=== PATIENT | female | born 1940 | race Caucasian/White ===

== ENCOUNTER 2016-05-11 09:58 | Outpatient (CLI) | payer MEDICARE, BC ==
[2016-05-11 11:07] LABS: Hemoglobin 12.6 g/dL (12.0-16.0); Mean Corpuscular HGB CONC 29.8 g/dL (32.0-36.0); Mean Corpuscular Hemoglobin 29.5 pg (27.0-31.0); Mean Platelet Volume 12.7 fL (7.4-10.4); Platelet Count 213 thou/uL (130-400); RBC Distribution Width 14.6 % (11.5-14.5); Red Blood Cell (RBC) Count 4.27 mill/uL (4.20-5.40)
[2016-05-11 11:08] LABS: Band 1 % (5-11); Eosinophils 2 % (0-10); Lymphocytes 19 % (21-51); MDiff Complete? YES; Manual Diff?? YES; Monocytes 8 % (0-10); Neutrophil 70 % (42-75)
[2016-05-11 11:09] LABS: PLT Morphology Comment Appears Adequate; RBC Morphology N
[2016-05-11 11:26] LABS: ALT (SGPT) 13 U/L (0-55); AST (SGOT) 18 U/L (5-34); Albumin 3.6 g/dL (3.4-4.8); Alkaline Phosphatase 80 U/L (40-150); Anion Gap 16 mmol/L (10-20); BUN (Urea Nitrogen) 12 mg/dL (9.8-20.1); Bilirubin, Direct 0.2 mg/dL (0.1-0.3); Bilirubin, Total 0.5 mg/dL (0.2-1.2); Calc. Creatinine Clearance 0 mL/min (70-130); Calcium 9.6 mg/dL (7.8-10.44); Carbon Dioxide 37 mmol/L (23-31); Cardiac Risk 2.4 (Less than 4.5); Cholesterol 169 mg/dL (< 200 Desired); Estimated GFR-MDRD 75; Glucose 99 mg/dL (83-110); HDL Cholesterol 70 mg/dL (>60 Neg Risk); LDL Cholesterol, Calculated 81 mg/dL; Protein, Total 6.8 g/dL (5.8-8.1); Triglycerides 88 mg/dL (Less than 150)
[2016-05-11 11:34] LABS: Chloride 93 mmol/L (98-107); Potassium 3.9 mmol/L (3.5-5.1); Sodium 142 mmol/L (136-145)
== END 2016-05-11 09:59 | disposition home or self-care (01) ==
LOC: MADLABBHPM 09:58
PROVIDERS: ATTEND Family Medicine
DX: N18.3 Chronic kidney disease, stage 3 (moderate) (principal); I50.32 Chronic diastolic (congestive) heart failure
CPT/HCPCS: 36415; 80048; 80061; 80076; 85025

== ENCOUNTER 2016-07-12 14:32 | Outpatient (CLI) | payer MEDICARE, BC ==
[2016-07-12 18:24] LABS: Calc. Creatinine Clearance 0 mL/min (70-130); Calcium 8.9 mg/dL (7.8-10.44); Estimated GFR-MDRD 53; Glucose 149 mg/dL (83-110)
[2016-07-12 18:47] LABS: BUN (Urea Nitrogen) 22 mg/dL (9.8-20.1); Carbon Dioxide 35 mmol/L (23-31)
[2016-07-12 19:22] LABS: Anion Gap 17 mmol/L (10-20); Chloride 95 mmol/L (98-107); Potassium 4.3 mmol/L (3.5-5.1); Sodium 143 mmol/L (136-145)
== END 2016-07-12 14:33 | disposition home or self-care (01) ==
LOC: MADLAB 14:32
PROVIDERS: ATTEND Internal Medicine Cardiovascular Disease
DX: I10 Essential (primary) hypertension (principal)
CPT/HCPCS: 36415; 80048

== ENCOUNTER 2016-09-19 09:38 | Outpatient (CLI) | payer MEDICARE, BC ==
[2016-09-19 10:08] LABS: Hemoglobin A1c 4.8 % (4.0-6.0)
[2016-09-19 10:12] LABS: Anion Gap 16 mmol/L (10-20); BUN (Urea Nitrogen) 15 mg/dL (9.8-20.1); Calc. Creatinine Clearance 0 mL/min (70-130); Calcium 9.3 mg/dL (7.8-10.44); Carbon Dioxide 38 mmol/L (23-31); Estimated GFR-MDRD 66; Glucose 90 mg/dL (83-110)
[2016-09-19 10:19] LABS: Chloride 93 mmol/L (98-107); Potassium 4.2 mmol/L (3.5-5.1); Sodium 143 mmol/L (136-145)
== END 2016-09-19 09:39 | disposition home or self-care (01) ==
LOC: MADLABBHPM 09:38
PROVIDERS: ATTEND Family Medicine
DX: R73.01 Impaired fasting glucose (principal); N18.3 Chronic kidney disease, stage 3 (moderate)
CPT/HCPCS: 36415; 80048; 83036

== ENCOUNTER 2017-12-02 13:35 | Emergency (ER) | payer MEDICARE, BC ==
[2017-12-02] MEDS ORDERED: Acetaminophen 500 MG TAB ONE (14:19)
[2017-12-02] MEDS ORDERED: Sulfameth/Trimethoprim DS 800-160mg TAB ONE (14:19)
== END 2017-12-02 14:29 | disposition home or self-care (01) ==
LOC: MADERS 13:35
DX: L03.115 Cellulitis of right lower limb (principal); S90.414A Abrasion, right lesser toe(s), initial encounter; K21.9 Gastro-esophageal reflux disease without esophagitis; J44.9 Chronic obstructive pulmonary disease, unspecified; I10 Essential (primary) hypertension; F17.210 Nicotine dependence, cigarettes, uncomplicated; Z79.899 Other long term (current) drug therapy
CPT/HCPCS: 99283

== ENCOUNTER 2017-12-09 13:58 | Emergency (ER) | payer MEDICARE, BC ==
[2017-12-09 14:45] LABS: CKMB 2.1 ng/mL (0-6.6); Troponin I Less than 0.010 ng/mL (< 0.028)
[2017-12-09 14:46] LABS: Band 8 % (5-11); Eosinophils 1 % (0-10); Hemoglobin 13.1 g/dL (12.0-16.0); Lymphocytes 1 % (21-51); MDiff Complete? YES; Mean Corpuscular HGB CONC 30.3 g/dL (32.0-36.0); Mean Corpuscular Hemoglobin 30.2 pg (27.0-31.0); Mean Corpuscular Volume 99.7 fL (78.0-98.0); Mean Platelet Volume 12.6 fL (7.4-10.4); Monocytes 2 % (0-10); Neutrophil 88 % (42-75); Platelet Count 250 thou/uL (130-400); Red Blood Cell (RBC) Count 4.33 mill/uL (4.20-5.40); White Blood Cell (WBC) Count 27.1 thou/uL (4.8-10.8)
[2017-12-09 14:47] LABS: ALT (SGPT) 21 U/L (8-55); AST (SGOT) 21 U/L (5-34); Albumin 3.9 g/dL (3.4-4.8); Alkaline Phosphatase 113 U/L (40-150); Anion Gap 18 mmol/L (10-20); BUN (Urea Nitrogen) 32 mg/dL (9.8-20.1); Bilirubin, Total 0.4 mg/dL (0.2-1.2); Calc. Creatinine Clearance 0 mL/min (70-130); Calcium 9.1 mg/dL (7.8-10.44); Carbon Dioxide 33 mmol/L (23-31); Chloride 93 mmol/L (98-107); Estimated GFR-MDRD 47; Globulin 3.3 g/dL (2.4-3.5); Glucose 116 mg/dL (83-110); Protein, Total 7.2 g/dL (6.0-8.3); Sodium 139 mmol/L (136-145)
--- NOTE | 2017-12-09 14:50 | RAD ---
UPRIGHT PORTABLE CHEST ONE VIEW: History: 67-year-old female with history of dyspnea. Comparison: 06-27-17 FINDINGS: Increased interstitial and reticular nodular parenchymal changes are noted bilaterally including the perihilar regions and lower lung zones with slight blunting of both costophrenic angles. This interst itial and reticular nodular pattern has progressed in appearance when compared to the prior 06-27-17 s tudy, evidence for some bilateral interstitial edema. Atherosclerosis of the aorta with ectasia. No s ignificant confluent component. IMPRESSION: Worsening interstitial and reticular nodular parenchymal changes bilaterally, evidence for developing edema. No significant acute confluent pneumonia. POS: OFF
[2017-12-09] MEDS ORDERED: methylPREDNISolone Sod Succ/PF 125 MG/2 ML VIAL ONE (14:59)
[2017-12-09] MEDS ORDERED: Furosemide 40 MG/4 ML VIAL ONE (15:34)
== END 2017-12-09 18:00 | disposition short-term general hospital (02) ==
LOC: MADERS 13:58
DX: J44.1 Chronic obstructive pulmonary disease with (acute) exacerbation (principal); I11.0 Hypertensive heart disease with heart failure; I50.9 Heart failure, unspecified; K21.9 Gastro-esophageal reflux disease without esophagitis; J44.9 Chronic obstructive pulmonary disease, unspecified; F17.210 Nicotine dependence, cigarettes, uncomplicated; Z79.899 Other long term (current) drug therapy
CPT/HCPCS: 36415; 71045; 80053; 82553; 83605; 83880; 84484; 85025; 87040; 93005; 94760; 96374; 96375; J1940; J2930; J7620

== ENCOUNTER 2018-02-13 01:10 | Emergency (ER) | payer MEDICARE, BC ==
[2018-02-13] MEDS ORDERED: Sodium Chloride 0.9% 500 ML ONE (01:42)
[2018-02-13 02:08] LABS: #Basophils 0.1 thou/uL (0.0-0.2); #Lymphocytes 0.7 thou/uL (1.20-3.40); #Monocytes 0.8 thou/uL (0.11-0.59); #Neutrophils 9.3 thou/uL (1.40-6.50); %Basophils 0.8 % (0.0-1.0); %Eosinophils 0.2 % (0.0-10.0); %Lymphocytes 6.7 % (21.0-51.0); %Monocytes 7.2 % (0.0-10.0); %Neutrophils 85.1 % (42.0-75.0); Hemoglobin 11.2 g/dL (12.0-16.0); Mean Corpuscular HGB CONC 30.5 g/dL (32.0-36.0); Mean Corpuscular Hemoglobin 30.7 pg (27.0-31.0); Mean Corpuscular Volume 100.8 fL (78.0-98.0); Mean Platelet Volume 11.4 fL (7.4-10.4); Platelet Count 222 thou/uL (130-400); RBC Distribution Width 14.2 % (11.5-14.5); Red Blood Cell (RBC) Count 3.65 mill/uL (4.20-5.40); White Blood Cell (WBC) Count 10.9 thou/uL (4.8-10.8)
[2018-02-13 02:14] LABS: ALT (SGPT) 23 U/L (8-55); AST (SGOT) 20 U/L (5-34); Albumin 3.9 g/dL (3.4-4.8); Alkaline Phosphatase 74 U/L (40-150); Anion Gap 18 mmol/L (10-20); BUN (Urea Nitrogen) 26 mg/dL (9.8-20.1); Bilirubin, Total 0.6 mg/dL (0.2-1.2); CK (CPK) 20 U/L (29-168); Calc. Creatinine Clearance 0 mL/min (70-130); Calcium 9.4 mg/dL (7.8-10.44); Estimated GFR-MDRD 44; Globulin 2.6 g/dL (2.4-3.5); Glucose 121 mg/dL (83-110); Protein, Total 6.5 g/dL (6.0-8.3)
[2018-02-13 02:22] LABS: Chloride 89 mmol/L (98-107); Potassium 4.1 mmol/L (3.5-5.1); Sodium 144 mmol/L (136-145)
[2018-02-13 02:41] LABS: Carbon Dioxide 41 mmol/L (23-31)
--- NOTE | 2018-02-13 08:11 | RAD ---
PORTABLE UPRIGHT FRONTAL CHEST RADIOGRAPH: DATE: 02/13/2018. COMPARISON: 01/13/2018. HISTORY: Dyspnea. FINDINGS: Stable prominence of the cardiac silhouette. Stable blunting of the left costophrenic angles suggest s pleural thickening and/or pleural fluid. There is stable increased interstitial density throughout both lungs when compared to the 02/13/2018 examination. There is no lobar consolidation or alveolar edema. Of note, the degree of interstitial prominence is more significant than when compared to a examination and 06/27/2017 examination. A degree of this may be technical in nature but sup erimposed interstitial pulmonary edema on chronic lung disease is a possibility. IMPRESSION: Interstitial prominence noted throughout both lungs with blunting of the left costophrenic angle. Fi ndings have progressed since 06/27/2017 and thus, findings may signify interstitial edema superimposed on chronic lung disease with possible left basilar infectious pneumonia or pleural effusion. Recomm end followup imaging following treatment to document resolution. POS: ANNITA
--- NOTE | 2018-02-13 09:38 | CT ---
PRELIMINARY REPORT/[facility]/EMERGENTY AFTER-HOURS PROCEDURE CT Head Without Contrast EXAM DATE/TIME: 02/13/2018 1:49 AM CLINICAL HISTORY: 77 years old, female; Injury or trauma; Fall; Initial encounter; Concussion / head injury; Consciousn ess not specified; Injury date: 02-13-18; Injury details: Syncope PT fell TECHNIQUE: Axial computed tomography images of the head/brain without contrast. All CT scans at this facility use at least one of these dose optimization techniques: automated expos ure control; mA and/or kV adjustment per patient size (includes targeted exams where dose is matched to clinical indication); or iterative reconstruction. COMPARISON: No relevant prior studies available. FINDINGS: Brain: No acute intracranial hemorrhage or mass effect. There is decreased attenuation in the periventricular white matter, likely from microvascular disease . Suspect an old lacunar infarct in the right basal ganglia/internal capsule region. No definite acut e infarct by CT. MRI could be more sensitive/specific for detection, as clinically directed. Ventricles: Ventricle size is normal for age. Bones/joints: No definite acute skull fracture. Sinuses: Included paranasal sinuses are essentially clear. Mastoid air cells: No significant acute finding. Vasculature: Vascular calcifications are noted in the internal carotid arteries. IMPRESSION: 1. No acute intracranial bleed or mass effect. 2. Other findings discussed above. Thank you for allowing us to participate in the care of your patient. Dictated and Authenticated by: Asael Richardson MD 02/13/2018 2:48 AM Central Time ([place] & [place]) FINAL REPORT CT HEAD NONCONTRAST: DATE: 02/13/2018. TIME: Performed on an emergency basis at 0150 hours. HISTORY: Fall. Head injury. FINDINGS: No comparison. Agree with the preliminary report by Dr. Richardson from [facility]. No acute intr acranial abnormalities are demonstrated. POS: [facility]
== END 2018-02-13 03:31 | disposition short-term general hospital (02) ==
LOC: MADERS 01:10
DX: J44.9 Chronic obstructive pulmonary disease, unspecified (principal); R55 Syncope and collapse; K21.9 Gastro-esophageal reflux disease without esophagitis; I10 Essential (primary) hypertension; I11.0 Hypertensive heart disease with heart failure; I48.91 Unspecified atrial fibrillation; F17.210 Nicotine dependence, cigarettes, uncomplicated
CPT/HCPCS: 36415; 70450; 71045; 80053; 82550; 83880; 84484; 85025; 93005; 94640; 94760; J7050; J7620

== ENCOUNTER 2018-02-24 15:51 | Inpatient (IN) | payer MEDICARE, BC ==
[2018-02-24] MEDS: Furosemide 40 MG TAB PO SCH (21:02)
[2018-02-24] MEDS: Gabapentin 100 MG CAP PO SCH (21:02)
[2018-02-24] MEDS: Apixaban 5 MG TAB PO SCH (21:03)
[2018-02-25] MEDS: Gabapentin 100 MG CAP PO SCH ×2 (08:11→20:58)
[2018-02-25] MEDS: Polyethylene Glycol 3350 17 GM Packet PO SCH (08:11)
[2018-02-25] MEDS: Acetaminophen 325 MG TAB PO PRN ×2 (08:11→19:49)
[2018-02-25] MEDS: predniSONE 20 MG TAB PO SCH (08:11)
[2018-02-25] MEDS: FLUTICASONE IH SCH (08:12)
[2018-02-25] MEDS: Apixaban 5 MG TAB PO SCH ×2 (08:12→20:57)
[2018-02-25] MEDS: UMECLIDIN IH SCH (08:12)
[2018-02-25] MEDS: Furosemide 40 MG TAB PO SCH ×2 (08:12→20:58)
[2018-02-25] MEDS: VILANTER IH SCH (08:12)
--- NOTE | 2018-02-25 14:55 | HP ---
CHIEF COMPLAINT: Weakness. HISTORY OF PRESENT ILLNESS: The patient is a 77-year-old white female, who has end-stage COPD, complicated by chronic hypercapnic hypoxemia, requiring supplemental O2 and sleeps with a BiPAP. The patient also has chronic diastolic heart failure, paroxysmal atrial fibrillation, continued cigarette utilization, hypertension, venous insufficiency of the lower extremity, and chronic kidney disease. She resides at home with her and has very limited activities, usually can take a few steps, but mainly gets around in a wheelchair. Her assists her with all her ADLs and instrumental ADLs. [facility] svhbd-cn-[id number] respiratory failure from 02/13/2018 until 2017 and bqxxe-bo-ycraeth congestive heart failure. While hospitalized, she had difficulties with hyperkalemia that has improved. She was left extremely weak and essentially has been bed-confined. Her condition was one of gradual improvement after the IV antibiotics, IV steroids, neb treatments, and BiPAP. Her condition improved such that it was felt that she could be transferred to [facility] to extended care for a trial of PT and OT. Her Pulmonary doctors felt like that she has very advanced COPD that is end-stage and that consideration should be given to hospice care. The patient is still wanting to try her best to see if she can just improve and get back into her home. The patient was seen soon after her admission and I was able to review her history of the recent hospitalization. PAST MEDICAL HISTORY: Hospitalized at [facility] from 04/16 until 02/24/2018 for uixlj-gw-ttsmadi respiratory failure with end-stage COPD and congestive heart failure. The patient has chronic diastolic heart failure; chronic hypercapnic-hypoxic respiratory failure, for which she uses a BiPAP at home; paroxysmal atrial fibrillation; hypertension; venous insufficiency of the lower extremities; chronic kidney disease; chronic low back pain; GERD; continued tobacco utilization; hyperthyroidism, treated with Tapazole in 04/07. The patient had an appendectomy, colonoscopy last in 2012, had polyp removed and it showed evidence of diverticular disease of the colon. She has had x-rays of her thoracic and lumbar spine previously that shows spondylosis of the spine. MEDICATIONS: Present medicines; 1. Albuterol inhaler 2 puffs every 6 hours as needed. 2. Ipratropium/albuterol 0.5/2.5 mg/3 mL, 3 mL by nebulizer q.i.d. and every 4 hours as needed. 3. Gabapentin 100 mg in the morning, 200 mg at bedtime. 4. Furosemide 40 mg b.i.d. 5. Trelegy Ellipta one inhalation daily. 6. Eliquis 2.5 mg b.i.d. 7. Prednisone 20 mg daily. 8. Metoprolol succinate 25 mg daily. 9. O2 at 2 to 3 L/min. ALLERGIES: HIGH-DOSE GABAPENTIN, CAUSES TREMORS. REVIEW OF SYSTEMS: GENERAL: The patient does not think she has had any fever. She does not think her weight has changed. HEAD AND NECK: No complaints. PULMONARY: The patient gets very short of breath with any exertion. If she lays flat, sometimes she gets short of breath. The patient states that she has a little phlegm that she coughs up that is clear. CARDIOVASCULAR: No chest pain. GI: No nausea or vomiting. Appetite is not good. Lately, she has been a little constipated. : The patient has been incontinent of urine. NEUROPSYCHIATRIC: The patient said she has generalized weakness, nonfocal. SKIN: The patient has a little abrasion on her left ankle area from a fall she had prior to her admission on 02/13. HABITS: The patient smoked most of her life. Continues to smoke a few cigarettes every day. Alcohol, none. SOCIAL HISTORY: The patient lives at home with her . CODE STATUS: DNR. PHYSICAL EXAMINATION: GENERAL: Shows a sthenic-built 77-year-old white female, who is sitting up in bed. She is mildly tachypneic. She is wearing O2. HEENT: Her ears, TMs are clear. Eyes, pupils are equal, round, and reactive. Sclerae nonicteric. Nose normal. Mouth and throat normal. NECK: Carotids are equal and strong. No bruits. Thyroid not enlarged. LUNGS: The patient has poor breath sounds. On forced expiration, there are fine wheezes throughout the chest, which are chronic for her. Coarse rales at the right posterior base. HEART: Irregular rate. ABDOMEN: Soft. No organomegaly nor areas of tenderness. The patient has some little red areas and abrasion in the left inguinal area that is healing. EXTREMITIES: Lower extremities; trace edema. NEUROLOGIC: The patient is alert and oriented x3. She has severe generalized weakness that is nonfocal. IMPRESSION: 1. Severe weakness. a. Chronic with acute exacerbation from her recent hospitalization. 2. Hospitalized at [facility] from 02/13/2018 until 02/24/2018 for lrfyt-fu-bmdaahh respiratory failure with congestive heart failure and hyperkalemia. 3. Chronic obstructive pulmonary disease, severe, end-stage. a. Complicated by chronic hypercapnic-hypoxic respiratory failure. b. Require supplemental O2, continuous. c. Utilizes a BiPAP at nighttime. 4. Chronic diastolic heart failure. a. No evidence of acute congestive heart failure on admission. 5. Paroxysmal atrial fibrillation. a. Rate controlled. b. On chronic anticoagulation with Eliquis. 6. Cigarette abuse, persist. 7. Hypertension. 8. Venous insufficiency of the lower extremities. 9. Chronic kidney disease, stage 3. 10. Chronic back pain secondary to spondylosis. 11. Code status. DNR. PLAN: The patient has been admitted to [facility] to extended care. We will continue her routine medications. PT and OT will work with her and give her an opportunity to see if her functional capabilities can be improved. The patient did reaffirm that she has a DNR status if nothing more can be done. The patient has end-stage COPD and there would not be much that could be offered to this lady. She is wanting to try physical therapy and OT to see if she can improve. We talked more with her and her about consideration of palliative hospice care. Job ID: [id number] MTDShanthi
--- NOTE | 2018-02-25 16:17 | PRG ---
DATE OF SERVICE: 02/25/2018 SUBJECTIVE: The patient said she is feeling a little better today. Yesterday, we had her out with the transfer from [facility] in [place] to [facility] here in [place]. She says her breathing is about the same. She does feel sort of hot this morning. She is not running any fever. OBJECTIVE: GENERAL: The patient is sitting up in bed. Awake, alert, talkative visiting her family. She has O2 on and appears comfortable. VITAL SIGNS: Her weight was 140. Temperature 97.9, pulse 102, respiration 16, O2 saturation 96% on 3 L, and blood pressure 124/83. LUNGS: Breath sounds are better than what they were on exam last evening. She does have some chronic expiratory wheeze on forced expiration. HEART: Regular rate. ASSESSMENT: 1. Severe generalized weakness and deconditioning. a. Secondary to the advanced chronic obstructive pulmonary disease and hypoxemia, and recent hospitalization for the acute exacerbation. b. Stable as of 02/25. 2. Chronic obstructive pulmonary disease, severe, end-stage. a. Complicated by chronic hypercapnic hypoxemic respiratory failure. b. Recent acute exacerbation with acute respiratory failure on chronic, requiring hospitalization at [facility] from 02/13/2018 to 02/24/2018. 3. Diastolic congestive heart failure, chronic. a. No evidence of acute congestive heart failure. 4. Paroxysmal atrial fibrillation. a. Rate control. b. On chronic anticoagulation with Eliquis. 5. Peripheral neuropathy. PLAN: Continue present care. Continue PT and OT. Job ID: [id number] MTDD
[2018-02-25 16:32] VITALS: BMI 23.3
[2018-02-26 05:35] LABS: Anisocytosis SLIGHT = 6-15 cells (100X) (0-5/hpf); Eosinophils 1 % (0-10); Hemoglobin 10.3 g/dL (12.0-16.0); Hypochromia MODERATE=16-30 cells (100X) (0-5/hpf); Lymphocytes 3 % (21-51); MDiff Complete? YES; Mean Corpuscular HGB CONC 29.9 g/dL (32.0-36.0); Mean Corpuscular Hemoglobin 30.4 pg (27.0-31.0); Mean Corpuscular Volume 101.6 fL (78.0-98.0); Mean Platelet Volume 11.7 fL (7.4-10.4); Monocytes 7 % (0-10); Neutrophil 85 % (42-75); Platelet Count 193 thou/uL (130-400); Poikilocytosis SLIGHT = 6-15 cells (100X) (0-5/hpf); RBC Distribution Width 14.3 % (11.5-14.5); RBC Morphology Abnormal; Reactive Lymphocytes 4 % (0-10); Red Blood Cell (RBC) Count 3.38 mill/uL (4.20-5.40); Stomatocytes MODERATE= 6-15 cells (100X) (0-1/hpf); White Blood Cell (WBC) Count 21.8 thou/uL (4.8-10.8)
[2018-02-26 05:37] LABS: Manual Diff?? YES
[2018-02-26 05:38] LABS: #Basophils 0.1 thou/uL (0.0-0.2); #Eosinphils 0.2 thou/uL (0.0-0.7); #Lymphocytes 1.7 thou/uL (1.20-3.40); #Monocytes 2.1 thou/uL (0.11-0.59); #Neutrophils 17.7 thou/uL (1.40-6.50); %Basophils 0.7 % (0.0-1.0); %Eosinophils 1.1 % (0.0-10.0); %Lymphocytes 7.8 % (21.0-51.0); %Monocytes 9.6 % (0.0-10.0); %Neutrophils 80.8 % (42.0-75.0)
[2018-02-26 05:39] LABS: PLT Morphology Comment Appears Adequate
[2018-02-26 05:41] LABS: ALT (SGPT) 22 U/L (8-55); AST (SGOT) 22 U/L (5-34); Alkaline Phosphatase 65 U/L (40-150); Anion Gap 12 mmol/L (10-20); BUN (Urea Nitrogen) 31 mg/dL (9.8-20.1); Bilirubin, Total 0.5 mg/dL (0.2-1.2); Calc. Creatinine Clearance 54 mL/min (70-130); Calcium 9.1 mg/dL (7.8-10.44); Estimated GFR-MDRD 63; Globulin 2.2 g/dL (2.4-3.5); Glucose 86 mg/dL (83-110); Protein, Total 5.2 g/dL (6.0-8.3)
[2018-02-26 05:51] LABS: Carbon Dioxide 37 mmol/L (23-31); Chloride 97 mmol/L (98-107); Potassium 4.2 mmol/L (3.5-5.1); Sodium 148 mmol/L (136-145)
[2018-02-26] MEDS: Furosemide 40 MG TAB PO SCH ×2 (08:34→20:29)
[2018-02-26] MEDS: Apixaban 5 MG TAB PO SCH ×2 (08:34→20:28)
[2018-02-26] MEDS: FLUTICASONE IH SCH (08:34)
[2018-02-26] MEDS: Gabapentin 100 MG CAP PO SCH ×2 (08:34→20:29)
[2018-02-26] MEDS: UMECLIDIN IH SCH (08:34)
[2018-02-26] MEDS: predniSONE 20 MG TAB PO SCH (08:34)
[2018-02-26] MEDS: VILANTER IH SCH (08:34)
[2018-02-26] MEDS: Polyethylene Glycol 3350 17 GM Packet PO SCH (08:35)
[2018-02-26] MEDS ORDERED: Bisacodyl 10 MG SUPP PR PRN (13:50)
--- NOTE | 2018-02-26 14:56 | PRG ---
DATE OF SERVICE: 02/26/2018 SUBJECTIVE: The patient says she is doing okay. She rested well last night, used her BiPAP. This morning, she is in the Physical Therapy Department in a Viviane chair. She is not really able to walk and requires kpuwpcjj-gk-ezzqulb assist with transfer. She said she gets short of breath with hardly any exertion. OBJECTIVE: GENERAL: The patient is sitting up in a geriatric chair. She is very mildly tachypneic, which is her usual status, is able to talk. VITAL SIGNS: Temperature 97.7, pulse 62, respirations 22, O2 saturation 92% on 3 L, and blood pressure 127/65. Weight is stable at 145. The patient's output over the last 24 hours was 2000 mL. LUNGS: Have poor breath sounds this morning, which is usual. Yesterday, was a very unusual day and that she had such improvement in her breath sounds. Today's breath sounds have some mild wheeze on expiration, which are chronic. HEART: Regular rate. EXTREMITIES: Trace edema in the lower extremities. LABORATORY DATA: Her lab shows an H and H of 10.3 and 34.4, white blood cell count 21,800 with 85% segs, 3% lymphocytes, and platelet count of 193,000. Sodium 148 , potassium 4.2, chloride 97, CO2 of 37, BUN 31, creatinine 0.87, and albumin 3.0. ASSESSMENT: 1. Severe generalized weakness and deconditioning. a. Secondary to the advanced chronic obstructive pulmonary disease and hypoxemia, and recent hospitalization for the acute exacerbation. b. Stable as of 02/26/2018, limited capability due to her severe chronic obstructive pulmonary disease and shortness of breath with much exertion. 2. Chronic obstructive pulmonary disease, severe, end-stage. a. Complicated by chronic hypercapnic hypoxemic respiratory failure. b. Recent acute exacerbation with acute respiratory failure on chronic, requiring hospitalization at [facility] from 02/13/2018 to 02/24/2018. 3. Diastolic congestive heart failure, chronic. a. No evidence of acute congestive heart failure as od 02/26/2018. 4. Paroxysmal atrial fibrillation. a. Rate control. b. On chronic anticoagulation with Eliquis. 5. Peripheral neuropathy. 6. Cigarette abuse persist. 7. Hypertension. 8. Venous insufficiency of the lower extremities. 9. Chronic kidney disease, stage 3. 10. Chronic back pain secondary to spondylosis. 11. Code status, DNR. PLAN: Continue present care. The patient's CBC shows leukocytosis, probably from the steroids causing demargination of the WBCs. We will continue to try to work with her to see if she can tolerate any therapy which might help with her general functional capability. Job ID: [id number] MTDD
[2018-02-27] MEDS: Apixaban 5 MG TAB PO SCH ×2 (08:15→20:57)
[2018-02-27] MEDS: Furosemide 40 MG TAB PO SCH ×2 (08:15→15:01)
[2018-02-27] MEDS: predniSONE 20 MG TAB PO SCH (08:15)
[2018-02-27] MEDS: UMECLIDIN IH SCH (08:16)
[2018-02-27] MEDS: VILANTER IH SCH (08:16)
[2018-02-27] MEDS: FLUTICASONE IH SCH (08:16)
[2018-02-27] MEDS: Polyethylene Glycol 3350 17 GM Packet PO SCH (08:17)
[2018-02-27] MEDS: Gabapentin 100 MG CAP PO SCH ×2 (08:17→20:58)
--- NOTE | 2018-02-27 13:40 | PRG ---
DATE OF SERVICE: 02/27/2018 SUBJECTIVE: The patient said she is doing okay this morning. She is a little tired. She just did not rest well last night. Storm kept her awake. She is ready to again try her physical therapy this morning. Therapy is here to take her to the PT department. OBJECTIVE: GENERAL: The patient is alert, appears comfortable, in no distress. VITAL SIGNS: Her temp is 97.5, pulse 83, respirations 20, O2 saturation 94%, and blood pressure 129/81. LUNGS: Fair breath sounds with some wheeze on forced expiration. HEART: _episodes of irregular rhythm but rate well controlled and in the 80s. EXTREMITIES: Trace edema, bilateral. ASSESSMENT: 1. Severe generalized weakness and deconditioning. a. Secondary to the advanced chronic obstructive pulmonary disease and hypoxemia, and recent hospitalization for the acute exacerbation. b. Stable as of 02/26/2018, limited capability due to her severe chronic obstructive pulmonary disease and shortness of breath with much exertion. 2. Chronic obstructive pulmonary disease, severe, end-stage. a. Complicated by chronic hypercapnic hypoxemic respiratory failure. b. Recent acute exacerbation with acute respiratory failure on chronic, requiring hospitalization at [facility] from 02/13/2018 to 02/24/2018. c. Mild improvement as of 02/27/2018. 3. Diastolic congestive heart failure, chronic. a. No evidence of acute congestive heart failure as of 02/27/2018. 4. Paroxysmal atrial fibrillation. a. Irregular rhythm, but rate controlled as of 02/27/2018. b. On chronic anticoagulation with Eliquis. 5. Peripheral neuropathy. 6. Cigarette abuse persist. 7. Hypertension. 8. Venous insufficiency of the lower extremities. 9. Chronic kidney disease, stage 3. 10. Chronic back pain secondary to spondylosis. 11. Code status, DNR. PLAN: Continue present care. Continue PT. Job ID: [id number] [facility]
[2018-02-27] MEDS: Acetaminophen 325 MG TAB PO PRN (15:26)
[2018-02-28] MEDS: FLUTICASONE IH SCH (09:32)
[2018-02-28] MEDS: UMECLIDIN IH SCH (09:32)
[2018-02-28] MEDS: VILANTER IH SCH (09:32)
[2018-02-28] MEDS: Furosemide 40 MG TAB PO SCH ×3 (09:33→15:48)
[2018-02-28] MEDS: Apixaban 5 MG TAB PO SCH ×2 (09:33→20:13)
[2018-02-28] MEDS: predniSONE 20 MG TAB PO SCH (09:33)
[2018-02-28] MEDS: Polyethylene Glycol 3350 17 GM Packet PO SCH (09:33)
[2018-02-28] MEDS: Gabapentin 100 MG CAP PO SCH ×2 (09:33→20:13)
[2018-03-01] MEDS: Polyethylene Glycol 3350 17 GM Packet PO SCH (08:20)
[2018-03-01] MEDS: predniSONE 20 MG TAB PO SCH (08:21)
[2018-03-01] MEDS: Apixaban 5 MG TAB PO SCH ×2 (08:21→20:53)
[2018-03-01] MEDS: Gabapentin 100 MG CAP PO SCH ×2 (08:22→20:54)
[2018-03-01] MEDS: Furosemide 40 MG TAB PO SCH (08:22)
[2018-03-01] MEDS: Fluticasone/Umeclidin/Vilanter [Trelegy Ellipta 100-62.5-25] INH SCH (08:22)
[2018-03-01 11:17] LABS: Anion Gap 16 mmol/L (10-20); BUN (Urea Nitrogen) 28 mg/dL (9.8-20.1); Calc. Creatinine Clearance 58 mL/min (70-130); Calcium 9.7 mg/dL (7.8-10.44); Estimated GFR-MDRD 69; Glucose 111 mg/dL (83-110)
[2018-03-01 11:25] LABS: Chloride 94 mmol/L (98-107); Potassium 5.1 mmol/L (3.5-5.1); Sodium 150 mmol/L (136-145)
[2018-03-01 11:31] LABS: #Basophils 0.1 thou/uL (0.0-0.2); #Eosinphils 0.1 thou/uL (0.0-0.7); #Lymphocytes 0.7 thou/uL (1.20-3.40); #Monocytes 1.1 thou/uL (0.11-0.59); #Neutrophils 16.8 thou/uL (1.40-6.50); %Basophils 0.6 % (0.0-1.0); %Eosinophils 0.5 % (0.0-10.0); %Lymphocytes 3.5 % (21.0-51.0); %Monocytes 5.7 % (0.0-10.0); %Neutrophils 89.8 % (42.0-75.0); Anisocytosis SLIGHT = 6-15 cells (100X) (0-5/hpf); Band 5 % (5-11); Eosinophils 1 % (0-10); Hemoglobin 10.7 g/dL (12.0-16.0); Hypochromia SLIGHT = 6-15 cells (100X) (0-5/hpf); Lymphocytes 8 % (21-51); MDiff Complete? YES; Mean Corpuscular HGB CONC 28.7 g/dL (32.0-36.0); Mean Corpuscular Volume 104.6 fL (78.0-98.0); Mean Platelet Volume 10.6 fL (7.4-10.4); Monocytes 6 % (0-10); Neutrophil 80 % (42-75); PLT Morphology Comment Appears Adequate; Platelet Count 190 thou/uL (130-400); RBC Distribution Width 14.7 % (11.5-14.5); Red Blood Cell (RBC) Count 3.56 mill/uL (4.20-5.40); White Blood Cell (WBC) Count 18.7 thou/uL (4.8-10.8)
[2018-03-01 11:35] LABS: Carbon Dioxide 46 mmol/L (23-31)
[2018-03-01] MEDS: Morphine 10 MG/0.5 ML ORAL SYRINGE SL PRN ×2 (12:44→17:41)
--- NOTE | 2018-03-01 13:06 | RAD ---
PORTABLE AP CHEST XRAY: DATE: 03/01/2018. HISTORY: Change in respiratory status. COMPARISON: 02/17/2018. FINDINGS: Parenchymal opacity at the lateral right lung base is again seen but has slightly improved from the p rior exam. There is a suggestion of a tiny right pleural effusion again noted. Pleural and parenchy mal changes are now present at the left lung base which may represent a left pleural effusion and ass ociated atelectasis. There are diffuse increased interstitial opacities bilaterally. Cardiac silhou ette is magnified by projection but does appear enlarged. Vascular calcifications are seen in the th oracic aorta. No other interval change. IMPRESSION: 1. Slight improvement in pneumonia at the lateral right lung base. 2. Small bilateral pleural effusions and atelectasis. 3. Increased interstitial opacities which do appear more prominent than on the prior exam. This cou ld be related to the technique of the exam, but findings are likely related to an element of pulmonar y edema superimposed on chronic interstitial lung changes. 4. Cardiomegaly. POS: ANNITA
--- NOTE | 2018-03-01 14:44 | PRG ---
DATE OF SERVICE: 03/01/2018 SUBJECTIVE: The patient has had several episodes since last night, where she has had increasing trouble breathing. She has felt more short of breath than usual. Her O2 saturation dropped as low as 60 and she became cyanotic; this was even on 5 L. After her neb treatments, this improved. She has had episodes of this early this morning and after the neb treatments, dropped from 5 L to 4 L her O2 saturation verenice to 94%. The patient told the nurse that she does not want to be transferred anywhere else, does not want to go back to [place]. OBJECTIVE: GENERAL: The patient is lying in bed with her head elevated. Her , daughter and son-in-law are in attendance. She is a little tachypneic at rest, but is comfortable. VITAL SIGNS: Her temp is 98.2, her pulse was 83, respirations have been 28, but at times will come up to 42. Her O2 saturation has dropped as low as 60, has come up to 94, blood pressure 129/60. LUNGS: Have poor breath sounds with some rales at the bases and expiratory wheeze. HEART: Regular rate. EXTREMITIES: Trace edema. LABORATORY DATA: Her lab shows an H and H of 10.7 and 37.2, white blood cell count 18,700 with 90% segs, 5% neutrophils, and 8% lymphocytes, had a platelet count of 190. Her sodium is 150, potassium 5.1, CO2 is up to 46, BUN down to 28, creatinine 0.8, glucose 111. The chest x-ray this morning shows the heart is smaller as compared to x-ray on 02/17. She does have some chronic infiltrate in the right lower lobe and some low nodular areas of infiltration throughout the right lung. The infiltrate on the right side does not look much different from the one on the x-ray of 02/17. ASSESSMENT: 1. Severe generalized weakness and deconditioning. a. Secondary to the advanced chronic obstructive pulmonary disease and hypoxemia, and recent hospitalization for the acute exacerbation. b. Stable as of 03/01/2018. Activities are extremely limited due to shortness of breath as of 03/01. 2. Chronic obstructive pulmonary disease, severe, end-stage. a. Complicated by chronic hypercapnic hypoxemic respiratory failure. b. Recent acute exacerbation with acute respiratory failure on chronic, requiring hospitalization at [facility] from 02/13/2018 to 02/24/2018. c. Recurrence of acute exacerbation with possible right basilar pneumonia as of 03/01/2018. 3. Diastolic congestive heart failure, chronic. a. No evidence of acute congestive heart failure as of 02/27/2018. 4. Paroxysmal atrial fibrillation. a. Irregular rhythm, but rate controlled as of 02/27/2018. b. On chronic anticoagulation with Eliquis. 5. Peripheral neuropathy. 6. Cigarette abuse persist. 7. Hypertension. 8. Venous insufficiency of the lower extremities. 9. Chronic kidney disease, stage 3. 10. Chronic back pain secondary to spondylosis. 11. Code status, DNR. PLAN: The patient has end-stage COPD and is having increased symptoms of shortness of breath with some further decline in her O2 saturation. X-rays, looks like there is still evidence of infiltrate in the right base and some little small nodular areas of infiltrates throughout the right lung. We will treat this as pneumonia and start her back on antibiotics and steroids. She also is a little hypernatremic. We will reduce her furosemide to 40 mg daily. Continue supportive care. We will also order morphine sublingual, if needed for shortness of breath or pain. Prognosis is very poor. Job ID: [id number] [facility]
--- NOTE | 2018-03-01 14:47 | PRG ---
DATE OF SERVICE: 02/28/2018 SUBJECTIVE: The patient is seen. She is doing okay. She said her breathing is pretty stable, but after her therapy, she has a little more trouble with shortness of breath. Her activities are limited due to her exertional shortness of breath. She is requiring maximum assistance with any transfers and is not ambulatory. OBJECTIVE: GENERAL: The patient is sitting up in bed and in effort to lean forward, she gets a little short of breath. VITAL SIGNS: Her temperature is 97.5; pulse 87; respirations 22, at times it will go up a little higher with activities; O2 saturation 99% on 3 L; blood pressure 114/68. LUNGS: Fair breath sounds with some rales at the bases and some end expiratory wheeze. HEART: Regular rate. EXTREMITIES: 1+ edema, better than yesterday. ASSESSMENT: 1. Severe generalized weakness and deconditioning. a. Secondary to the advanced chronic obstructive pulmonary disease and hypoxemia, and recent hospitalization for the acute exacerbation. b. Stable as of 02/28/2018, limited capability due to her severe chronic obstructive pulmonary disease and shortness of breath with much exertion. 2. Chronic obstructive pulmonary disease, severe, end-stage. a. Complicated by chronic hypercapnic hypoxemic respiratory failure. b. Recent acute exacerbation with acute respiratory failure on chronic, requiring hospitalization at [facility] from 02/13/2018 to 02/24/2018. c. Stable as of 02/28/2018. 3. Diastolic congestive heart failure, chronic. a. No evidence of acute congestive heart failure as of 02/28/2018. 4. Paroxysmal atrial fibrillation. a. Irregular rhythm, but rate controlled as of 02/27/2018. b. On chronic anticoagulation with Eliquis. 5. Peripheral neuropathy. 6. Cigarette abuse persist. 7. Hypertension. 8. Venous insufficiency of the lower extremities. 9. Chronic kidney disease, stage 3. 10. Chronic back pain secondary to spondylosis. 11. Code status, DNR. PLAN: Continue present care. Continue efforts with PT, which were limited due to her end-stage COPD. Job ID: [id number] [facility]
[2018-03-02 06:13] LABS: Hemoglobin 10.5 g/dL (12.0-16.0); Mean Corpuscular Hemoglobin 30.5 pg (27.0-31.0); Mean Corpuscular Volume 105.2 fL (78.0-98.0); Mean Platelet Volume 11.9 fL (7.4-10.4); Platelet Count 203 thou/uL (130-400); RBC Distribution Width 14.5 % (11.5-14.5); Red Blood Cell (RBC) Count 3.45 mill/uL (4.20-5.40); White Blood Cell (WBC) Count 17.6 thou/uL (4.8-10.8)
[2018-03-02 06:14] LABS: Band 3 % (5-11); Lymphocytes 4 % (21-51); Manual Diff?? YES; Monocytes 2 % (0-10); Neutrophil 91 % (42-75)
[2018-03-02 06:15] LABS: Anion Gap 20 mmol/L (10-20); Anisocytosis SLIGHT = 6-15 cells (100X) (0-5/hpf); BUN (Urea Nitrogen) 38 mg/dL (9.8-20.1); Calc. Creatinine Clearance 48 mL/min (70-130); Calcium 9.7 mg/dL (7.8-10.44); Estimated GFR-MDRD 56; Glucose 137 mg/dL (83-110); MDiff Complete? YES; PLT Morphology Comment Appears Adequate; Poikilocytosis SLIGHT = 6-15 cells (100X) (0-5/hpf)
[2018-03-02 06:22] LABS: Chloride 93 mmol/L (98-107); Potassium 5.8 mmol/L (3.5-5.1); Sodium 148 mmol/L (136-145)
[2018-03-02 06:26] LABS: Carbon Dioxide 43 mmol/L (23-31)
[2018-03-02] MEDS: Morphine 10 MG/0.5 ML ORAL SYRINGE SL PRN (08:03)
[2018-03-02] MEDS ORDERED: Morphine 10 MG/0.5 ML ORAL SYRINGE NEB PRN (09:31)
[2018-03-02] MEDS ORDERED: Lorazepam 1 MG TAB PO PRN (09:33)
[2018-03-02] MEDS: predniSONE 20 MG TAB PO SCH (09:46)
[2018-03-02] MEDS: Apixaban 5 MG TAB PO SCH (09:46)
[2018-03-02] MEDS: Furosemide 40 MG TAB PO SCH (09:46)
[2018-03-02] MEDS: Gabapentin 100 MG CAP PO SCH (09:46)
[2018-03-02] MEDS: Fluticasone/Umeclidin/Vilanter [Trelegy Ellipta 100-62.5-25] INH SCH (09:46)
[2018-03-02] MEDS: Polyethylene Glycol 3350 17 GM Packet PO SCH (09:47)
[2018-03-02] MEDS: Morphine 10 MG/ML VIAL FS PRN ×4 (16:37→23:20)
[2018-03-03] MEDS: Morphine 10 MG/ML VIAL FS PRN ×5 (01:47→23:47)
[2018-03-03] MEDS: Sodium Chloride For Inhalation 0.9% 3 ML NEB NEB PRN ×2 (01:48→05:07)
[2018-03-03 09:05] VITALS: BP 133/82
[2018-03-03] MEDS: Morphine 10 MG/0.5 ML ORAL SYRINGE SL PRN (10:55)
[2018-03-03] MEDS: Furosemide 40 MG TAB PO SCH (10:58)
[2018-03-03] MEDS: Fluticasone/Umeclidin/Vilanter [Trelegy Ellipta 100-62.5-25] INH SCH (10:59)
--- NOTE | 2018-03-03 14:14 | PRG ---
DATE OF SERVICE: 03/02/2018 SUBJECTIVE: This morning, the patient says her breathing is not very good. Said her has been with her. OBJECTIVE: GENERAL: The patient is lying in bed with the head of the bed elevated. She is a little tachypneic. She is extremely weak and can barely talk. She has occasional little jerk. VITAL SIGNS: Her temperature is 97.2, pulse 101, respirations 34. O2 saturation has been up to 90%, but down to 80% even with her 4 L by nasal cannula. Blood pressure 110/56. LUNGS: Breath sounds are little better, but she has diffuse expiratory rhonchi and some end-expiratory little mild wheeze. HEART: Rapid, regular rhythm. LABORATORY DATA: Shows hemoglobin and hematocrit of 10.5 and 36.3, white cell count 17,600, 91% segs, 3% bands, 4% lymphocytes, platelet count 203. Sodium 148, potassium 5.8, CO2 is 43, BUN 38, creatinine 0.97, GFR down to 56, glucose 137. ASSESSMENT: 1. Severe generalized weakness and deconditioning. a. Secondary to the advanced chronic obstructive pulmonary disease and hypoxemia, and recent hospitalization for the acute exacerbation. b. bed confined and cannot even hardly move in bed due to shortness of breath as of 03/02/2018. 2. Chronic obstructive pulmonary disease, severe, end-stage. a. Complicated by chronic hypercapnic hypoxemic respiratory failure. b. Recent acute exacerbation with acute respiratory failure on chronic, requiring hospitalization at [facility] from 02/13/2018 to 02/24/2018. c. Recurrence of acute exacerbation with possible right basilar pneumonia as of 03/01/2018. 1. The patient's condition has continued to deteriorate with probable progressive hypercapnia as of 03/02/2018. 3. Diastolic congestive heart failure, chronic. a. No evidence of acute congestive heart failure as of 03/02/2018. 4. Paroxysmal atrial fibrillation. a. Irregular rhythm, but rate controlled as of 02/27/2018. b. On chronic anticoagulation with Eliquis. 5. Peripheral neuropathy. 6. Cigarette abuse persist. 7. Hypertension. 8. Venous insufficiency of the lower extremities. 9. Chronic kidney disease, stage 3. a. Decline in her GFR to 56 as of 03/02/2018. 10. Chronic back pain secondary to spondylosis. 11. Code status, DNR. PLAN: The patient's condition has been one of gradual deterioration over the last 48 hours and condition looks worse today. She is very short of breath with any exertion. I have visited with the and he is aware that she has end- stage COPD and has acute exacerbation, that she probably will not recover from. He is agreeable to palliative management with comfort being the primary goal, but also we will continue her treatment with the steroids and the antibiotics. We will order morphine sublingual as needed and also by nebulizer and lorazepam to help with anxiety. Her condition will continue to decline. I do not think she will survive much longer. Job ID: [id number] MTDD
--- NOTE | 2018-03-03 14:15 | PRG ---
DATE OF SERVICE: 03/03/2018 SUBJECTIVE: The patient's condition has been one of continual decline. She is having more episodes of tachypnea, episodes where she is unresponsive, and episodes where O2 saturation drops and she became cyanotic. This morning, she is sitting up in her bed, she is not responsive to verbal or tactile stimuli. She is tachypneic. She has expiratory rhonchi on expiration. Heart is rapid, regular rhythm. Extremities, nailbeds are cyanotic. The patient's condition is one of further decline. The patient was not responsive this morning, probably secondary to an increasing hypercapnic failure. We will continue comfort measures and continue the morphine and Ativan as needed. I doubt that she will survive the day. Job ID: [id number]
[2018-03-03] MEDS ORDERED: Morphine 10 MG/0.5 ML ORAL SYRINGE ONE (16:01)
[2018-03-03 20:00] VITALS: TEMP 94.8
[2018-03-04] MEDS: Morphine 10 MG/0.5 ML ORAL SYRINGE SL PRN ×2 (00:45→05:37)
[2018-03-04] MEDS: Morphine 10 MG/ML VIAL FS PRN ×2 (07:15→09:30)
[2018-03-04] MEDS: Fluticasone/Umeclidin/Vilanter [Trelegy Ellipta 100-62.5-25] INH SCH (08:38)
[2018-03-04] MEDS: Furosemide 40 MG TAB PO SCH (08:38)
[2018-03-04] MEDS: Sodium Chloride For Inhalation 0.9% 3 ML NEB NEB PRN (09:31)
--- NOTE | 2018-03-05 08:24 | PRG ---
DATE OF SERVICE: 03/04/2018 SUBJECTIVE: This morning, the patient's , daughter, and son-in-law are all with her. Daughter stayed through the night, and she said that during the night, she would open her eyes occasionally and try to speak a little. This morning, though, she just on an occasion opened her eyes. She had been very tachypneic and hypoxic, requiring 35% nonrebreathing mask. OBJECTIVE: GENERAL: On exam, she is lying in bed with the head of the bed elevated about 45 degrees. She is very tachypneic. VITAL SIGNS: Her pulse was 108, respirations have been 36, O2 saturation has been only 90% on 35%. The patient was not responsive to any verbal or tactile stimuli. LUNGS: Have expiratory rhonchi diffusely throughout the chest and coarse rales. HEART: Has rapid regular rhythm. EXTREMITIES: Edematous. ASSESSMENT AND PLAN: The patient's condition continues to deteriorate, and she is near . We will continue comfort measures. Discussed with the family, and they are aware her time is very close. Job ID: [id number]
--- NOTE | 2018-03-05 08:29 | DIS ---
DATE OF ADMISSION: 02/24/2018 DATE OF DISCHARGE: 03/04/2018 SUMMARY: Admitted to [facility] on 02/24/2018 and on 2018. FINAL DIAGNOSES: 1. Severe generalized weakness and deconditioning. a. Secondary to advanced chronic obstructive pulmonary disease with hypercapnia and recent hospitalization for acute exacerbation. b. Gradual deteriorating strength resulting in her being bed confined, requiring total care. 2. Chronic obstructive pulmonary disease, severe, end stage. a. Complicated by chronic hypercapnic-hypoxic respiratory failure. b. Recent acute exacerbation with acute respiratory failure on chronic, requiring hospitalization at [facility] from 02/13/2018 until 2017. c. Recurrence of acute exacerbation with right-sided pneumonia resulting in further respiratory failure and as of 03/04/2018. 3. Diastolic congestive heart failure. 4. Paroxysmal atrial fibrillation. a. Irregularly irregular rhythm with rate controlled. b. Had been on chronic anticoagulation with Eliquis. 5. Peripheral neuropathy. 6. Cigarette abuse up until her last hospitalization. 7. Hypertension. 8. Venous insufficiency of the lower extremities. 9. Chronic kidney disease, stage 3. 10. Chronic low back pain secondary to spondylosis. 11. Code status, DNR. SUMMARY: Ms. Franco was a 77-year-old white female, who had a long history of COPD that had gradually progressed to where it had been severe and end stage. She had been hospitalized on numerous occasions for acute exacerbations and the severe COPD was complicated by chronic hypoxic and hypercapnic respiratory failure, requiring supplemental O2. She also had a history of chronic atrial fibrillation, for which she had been on Eliquis and the rate had been controlled. She had chronic diastolic congestive heart failure, peripheral neuropathy, hypertension, chronic kidney disease, and venous insufficiency of the lower extremities. She had chronic pain in her low back secondary to spondylosis. She had a long history of cigarette abuse and was continuing to smoke up until her last hospitalization. The patient entered [facility] on 02/13 and remained until 02/24/2018 for acute exacerbation with respiratory failure. She gradually improved, but was felt to be end stage and recommended that she consider hospice/palliative care. The patient was left very, very weak and required assistance with all her ADLs. She and her family had opted to be transferred to [facility] on the evening of 2017 in an effort to try and improve her strength, weakness, and functional capability. The patient was very debilitated and extremely weak and any exertion left her short of breath. Respiratory worked with her, but her abilities were very limited. She required maximum assistance with any transfers and was not ambulatory. The patient developed increased shortness of breath and increased cough. Chest x-ray showed there was still evidence of the right lower lobe infiltrate from the recent right lower lobe pneumonia that looked maybe a little better, but there were new areas of infiltrate in the right middle and right upper lobe. The patient was placed back on Solu-Medrol and IV antibiotics and her neb treatments and the continuation of her supplemental O2. Her condition was very poor and it did not feel like that she would survive this episode. Her condition was one of gradual decline. She was given morphine by nebulization to help with the shortness of breath. Also, morphine sublingual was ordered as was lorazepam. The patient's condition continued to deteriorate. She required boosting her oxygen up to 35% venturi mask. Her IV infiltrated. It was opted to stop the IV Solu-Medrol and Levaquin due to her terminal condition. Her care was continued with providence of comfort measures. The patient gradually became unresponsive. Respiratory rate increased and she shortly became gradually more hypercapnic. Around 2 p.m. on 03/04/2018, her respirations ceased and she . Her family was in attendance. No resuscitative efforts were made per her request and the family. The patient was examined by myself and she had no respirations or heart rate, pupils were fixed and dilated. The patient had . CAUSE OF : COPD, end stage, complicated by hypoxic and hypercapnic respiratory failure. Job ID: [id number] [facility]
--- NOTE | 2018-03-06 07:35 | PQF ---
KIMBERLEY CEBALLOS GROVER MD [id number] CLINICAL DOCUMENTATION CLARIFICATION FORM: POST DISCHARGE Addendum to original discharge summary date: ____ Late entry note date: __ Please exercise your independent, professional judgment in responding to the clarification form. Clinical indicators are provided on the bottom of this form for your review Please check appropriate box(s): [ ] Acute Respiratory Failure: [ ] with Hypoxia[ ] with Hypercapnia [ +] Acute On Chronic Respiratory Failure: [ + ] with Hypoxia [+ ] with Hypercapnia [ ] Acute Respiratory Failure due to: (etiology) [ ] Chronic Respiratory Failure only [ ] with Hypoxia [ ] with Hypercapnia [ ] Other diagnosis [ ] Unable to determine For continuity of documentation, please document condition throughout progress notes and discharge summary. Thank You. CLINICAL INDICATORS - SIGNS / SYMPTOMS / LABS Discharge summary documents COPD, severe, end-stage complicated by chronic hypercapnic-hypoxic repsiratory failure, recent acute exacerbation with acute respiratory failure on chronic, requiring hospitalization. Discharge summary documents recurrence of acute exacerbation with right-sided pneumonia resulting in further repsiratory and as of 03/04/18. Discharge summary documents respiratory rate increased and she became gradually more hypercapnic and around 2 p.m. on 03/04/18, her respirations ceased and she . Cause of is COPD, end stage, complicated by hypoxic and hypercapnic respiratory failure documented in discharge summary Progress note dated 03/03/18 by Dewayne Gamble documents O2 saturation drops and she became cyanotic, not responsive to verbal or tactile stimuli, probably secondary to an increasing hypercapnic failure. Progress note dated 03/02/18 by Dewayne Gamble documents O2 saturation has been up to 90%, but down to 80% even with 4 L by nasal cannula. Progress note dated 03/01/[address] Maura Buchanan documents respirations have been 28, but at times will come up to 42. O2 saturation dropped as low as 60. RISK FACTORS COPD exacerbation, end-stage Chronic diastolic CHF Tobacco abuse Pneumonia TREATMENTS: 35% venturi mask BiPAP at nighttime Supplemental oxygen (This form is maintained as a part of the permanent medical record) 2014 [employer]. All Rights Reserved Courtney [email or web address] [phone] MTDD
== END 2018-03-04 17:05 | disposition expired | DRG 190 ==
LOC: MADMS 17:21
PROVIDERS: ADMIT Family Medicine; ATTEND Family Medicine
DX: J44.1 Chronic obstructive pulmonary disease with (acute) exacerbation (principal); J18.9 Pneumonia, unspecified organism; J96.21 Acute and chronic respiratory failure with hypoxia; J96.22 Acute and chronic respiratory failure with hypercapnia; I13.0 Hypertensive heart and chronic kidney disease with heart failure and stage 1 through stage 4 chronic kidney disease, or unspecified chronic kidney disease; I50.32 Chronic diastolic (congestive) heart failure; E87.0 Hyperosmolality and hypernatremia; Z51.5 Encounter for palliative care; Z66 Do not resuscitate; J44.0 Chronic obstructive pulmonary disease with (acute) lower respiratory infection; I48.0 Paroxysmal atrial fibrillation; G89.29 Other chronic pain; M54.5 Low back pain; I87.2 Venous insufficiency (chronic) (peripheral); K21.9 Gastro-esophageal reflux disease without esophagitis; N18.3 Chronic kidney disease, stage 3 (moderate); M47.9 Spondylosis, unspecified; F17.210 Nicotine dependence, cigarettes, uncomplicated; G62.9 Polyneuropathy, unspecified; Z90.49 Acquired absence of other specified parts of digestive tract; Z98.890 Other specified postprocedural states; Z79.899 Other long term (current) drug therapy; Z88.8 Allergy status to other drugs, medicaments and biological substances; Z79.01 Long term (current) use of anticoagulants; Z79.52 Long term (current) use of systemic steroids
CPT/HCPCS: 36415; 71045; 80048; 80053; 85025; G8978-GP-CM; G8979-GP-CK; G8987-GO-CM; G8988-GO-CI; J1956; J2270; J2920; J7506; J7620